=== PATIENT | female | born 1985 ===

== ENCOUNTER 2017-12-01 23:27 | Emergency (ER) | payer MEDICAID ==
[2017-12-01 23:27] VITALS: BMI 25.8
[2017-12-02 00:04] VITALS: BP 128/67; PULSE 90; RESP 18; TEMP 98; O2SAT 98
--- NOTE | 2017-12-02 01:03 | ED PDOC ---
HPI: Skin/Bite Injury Time Seen by Provider: 12/02/17 00:50 Chief Complaint (Nursing): Abnormal Skin Integrity Chief Complaint (Provider): rash History Per: Patient History/Exam Limitations: no limitations Onset/Duration Of Symptoms: Days (3) Current Symptoms Are (Timing): Still Present Quality Of Symptoms: Itching Additional Complaint(s): 32 y/o female presents for evaluation of pruritic rash to arms and legs x 3 days. Patient states some of the rash had a "circular" appearance to it, has been applying anti-fungal cream with some relief. Denies fever, nausea/vomiting , drainage to sites, known allergen Past Medical History Reviewed: Historical Data, Nursing Documentation, Vital Signs Vital Signs: Last Vital Signs Temp 98.0 F 12/02/17 00:03 Pulse 90 12/02/17 00:03 Resp 18 12/02/17 00:03 BP 128/67 12/02/17 00:03 Pulse Ox 98 12/02/17 01:03 - Medical History PMH: No Chronic Diseases - Surgical History Surgical History: Cholecystectomy (Gallstone removed) - Family History Family History: States: Unknown Family Hx - Immunization History Hx Tetanus Toxoid Vaccination: No Hx Influenza Vaccination: No Hx Pneumococcal Vaccination: No - Home Medications Home Medications: Ambulatory Orders Medication Instructions Recorded Penicillin VK [Penicillin VK Tab] 500 mg PO Q6H #28 tab 08/23/17 oxyCODONE/Acetaminophen [Percocet 1 tab PO QID PRN #20 tab 08/23/17 5/325 mg Tab] Amoxicillin 500 mg PO TID #20 tablet 10/20/17 Ibuprofen [Motrin Tab] 1 tab PO Q6 PRN #15 tab 10/20/17 traMADol [Ultram] 50 mg PO Q8 PRN #10 tab 10/20/17 Fluconazole 150 mg PO ONCE #1 tablet 12/02/17 predniSONE [Prednisone] 60 mg PO DAILY #12 tab 12/02/17 - Allergies Allergies/Adverse Reactions: Allergies Allergy/AdvReac Type Severity Reaction Status Date / Time No Known Allergies Allergy Verified 08/23/17 03:13 Review of Systems ROS Statement: Except As Marked, All Systems Reviewed And Found Negative Skin: Positive for: Rash Physical Exam - Reviewed Nursing Documentation Reviewed: Yes Vital Signs Reviewed: Yes - Physical Exam Appears: Positive for: Well, Non-toxic, No Acute Distress Head Exam: Positive for: ATRAUMATIC, NORMAL INSPECTION, NORMOCEPHALIC Skin: Positive for: Rash (papular rash noted to b/l arms and legs; small circular areas with central clearing. No sandpaper appearance, drainage, warmth to touch ) Extremity: Positive for: Normal ROM Neurologic/Psych: Positive for: Alert, Oriented - ECG O2 Sat by Pulse Oximetry: 98 - Progress ED Course And Treament: Patient educated on findings, discharged with rx prednisone, fluconazole (doses given in ED) Advised follow up PMD/dermatology Benadryl PRN Return precautions given Disposition - Clinical Impression Clinical Impression: Tinea corporis, Dermatitis - Patient ED Disposition Is Patient to be Admitted: No Counseled Patient/Family Regarding: Diagnosis, Need For Followup, Rx Given - Disposition Referrals: [facility] [Outside] Disposition: Routine/Home Disposition Time: 02:11 Condition: IMPROVED Prescriptions: Fluconazole 150 mg PO ONCE #1 tablet predniSONE [Prednisone] 60 mg PO DAILY #12 tab Instructions: Ringworm, Dermatitis Forms: [facility] (Slovenian)
[2017-12-02] MEDS: Fluconazole 150 MG TAB PO STA (01:54)
== END 2017-12-02 02:25 | disposition home or self-care (01) ==
LOC: H.ER 23:27
DX: L30.9 Dermatitis, unspecified (principal); B35.4 Tinea corporis